=== PATIENT | female | born 1990 | race African-American/Black ===

== ENCOUNTER 2020-04-12 22:19 | Emergency (ER) | payer MEDICAID ==
[~2020-04-12] VITALS: Ht 170.2 cm; Wt 61.0 kg
[2020-04-12 23:27] VITALS: BP 114/69
== END 2020-04-12 23:28 | disposition home or self-care (01) ==
LOC: ER 22:19
DX: S01.111D Laceration without foreign body of right eyelid and periocular area, subsequent encounter (principal); J45.909 Unspecified asthma, uncomplicated; Z48.00 Encounter for change or removal of nonsurgical wound dressing; X58.XXXD Exposure to other specified factors, subsequent encounter
CPT/HCPCS: 99281

== ENCOUNTER 2020-08-20 14:56 | Emergency (ER) | payer OTHER ==
[~2020-08-20] VITALS: Ht 175.3 cm; Wt 60.0 kg
[2020-08-20 15:04] VITALS: BP 114/77
== END 2020-08-20 15:45 | disposition left against medical advice (07) ==
LOC: ER 14:56
DX: M79.641 Pain in right hand (principal); Z87.81 Personal history of (healed) traumatic fracture; W01.0XXA Fall on same level from slipping, tripping and stumbling without subsequent striking against object, initial encounter; Y93.89 Activity, other specified; Y92.018 Other place in single-family (private) house as the place of occurrence of the external cause
CPT/HCPCS: 99281